=== PATIENT | female | born 1985 | race Caucasian/White ===

== ENCOUNTER 2019-01-27 17:34 | Emergency (ER) | payer OTHER ==
[2019-01-27] MEDS: HYDROmorphONE 2 MG/ML SYG IM (18:49)
[2019-01-27] MEDS: ONDANSETRON (ODT) 4 MG TAB ODT (18:50)
[2019-01-27] MEDS: DIAZEPAM 5 MG TAB PO (18:50)
== END 2019-01-27 21:03 | disposition home or self-care (01) ==
LOC: E/R 17:34
DX: S49.91XA Unspecified injury of right shoulder and upper arm, initial encounter (principal); I10 Essential (primary) hypertension; F15.10 Other stimulant abuse, uncomplicated; X58.XXXA Exposure to other specified factors, initial encounter; Y92.9 Unspecified place or not applicable; Z86.73 Personal history of transient ischemic attack (TIA), and cerebral infarction without residual deficits
CPT/HCPCS: 73030; 73030-RT; 93005; 96372; 99284-25

== ENCOUNTER 2019-02-11 19:02 | Emergency (ER) | payer OTHER ==
[2019-02-11] MEDS: ACETAMINOPHEN 325 MG TAB PO (20:30)
== END 2019-02-11 22:11 | disposition home or self-care (01) ==
LOC: FTE 22:11
DX: M25.511 Pain in right shoulder (principal); I10 Essential (primary) hypertension; Z86.73 Personal history of transient ischemic attack (TIA), and cerebral infarction without residual deficits
CPT/HCPCS: 73030; 73030-RT; 81025; 99283-25